=== PATIENT | male | born 1990 | race American Indian/Alaskan Native ===

== ENCOUNTER 2018-10-29 12:39 | Emergency (ER) | payer OTHER ==
[2018-10-29 12:49] VITALS: BP 129/84
--- NOTE | 2018-10-29 12:50 | Emergency Department Report ---
Chief Complaint: Earache Stated Complaint: LFT EAR PAIN/MIGRANES Time Seen by Provider: 10/29/18 12:46 - HPI History of Present Illness: This is a 28 y.o. male that presents to the ER with left ear pain for 2-3 days. Patient reports pain is worse with movement. Muffled hearing to left ear. He applied peroxide and sweat oil with no improvement of symptoms. Denies drainage, fever, & cough. - Exam Vital Signs: Vital Signs 10/29/18 12:46 Temperature 99.1 F Pulse Rate 81 Respiratory 20 Rate Blood Pressure 129/84 O2 Sat by Pulse 97 Oximetry Physical Exam: GENERAL: The patient is well looking, in no acute distress. HEENT: Erythematous and bulging left tympanic membrane. Atraumatic and normocephalic. Pupils are equal, round, reactive to light, and accommodation. Extraocular movements are intact. There is no icterus, cyanosis, or pallor of the conjunctivae. Nasal turbinates are clear without exudates. Sinuses nontender to percussion. Posterior pharynx is normal. No exudates are noted. CHEST: Air entry is adequate bilaterally with no rhonchi, and crackles. HEART: Sounds 1 and 2 are heard and are normal. Regular rate and rhythm, no tachycardic, murmurs, gallops, or rubs. ABDOMEN: Soft and nontender. Bowel sounds are present and normal. There is no hepatosplenomegaly. SKIN: Without rash. EXTREMITIES: Without edema, cyanosis, or clubbing. MSE screening note: Focused history and physical exam performed. Due to findings the following was ordered: ED Medical Decision Making - Medical Decision Making Patient is stable and was examined by me. Vitals normal. Physical assessment susceptible of serous otitis media of left ear. Start amoxicillin, Tylenol or ibuprofen for pain. Discussed plan with patient who agreed with ER plan. Discharged home in stable condition. Follow up with PCP in 24-72 hours. ED Disposition for MSE Clinical Impression: Otitis media Qualifiers: Otitis media type: suppurative Chronicity: acute Laterality: left Recurrence: non-recurrent Spontaneous tympanic membrane rupture: without spontaneous rupture Qualified Code(s): H66.002 - Acute suppurative otitis media without spontaneous rupture of ear drum, left ear Disposition: TO HOME OR SELFCARE Is pt being admited?: No Does the pt Need Aspirin: No Condition: Stable Instructions: Otitis Media (ED) Additional Instructions: Give Tylenol or ibuprofen for pain every 6-8 hours. Take antibiotics as prescribed to avoid recurrence of the ear infection. Avoid high altitudes, may worsen the pain during ear infection. If symptoms do not improve within 2 to 3 days, then follow up with [facility]ides Att[facility]. Prescriptions: Ibuprofen [Motrin 800 MG tab] 800 mg PO Q8HR PRN #20 tablet PRN Reason: Pain , Severe (7-10) Amoxicillin [Trimox CAP] 500 mg PO BID #20 capsule Referrals: [facility] [Outside] - 3-5 Days [facility] [Outside] - 3-5 Days [facility] [Outside] - 3-5 Days Forms: Work/School Release Form(ED) Time of Disposition: 13:12
== END 2018-10-29 13:20 | disposition home or self-care (01) ==
LOC: ED 12:39
DX: H66.92 Otitis media, unspecified, left ear (principal)